=== PATIENT | male | born 1965 | race Caucasian/White ===

== ENCOUNTER 2021-04-16 18:42 | Outpatient (REF) | payer MEDICARE, MEDICAID, SELFPAY ==
[2021-04-16 19:41] LABS: Influenza A PCR NEGATIVE (Negative); Influenza B PCR NEGATIVE (Negative); Resp Syncy Virus RNA Qual PCR NEGATIVE (Negative); SARS COV2 PCR INHOUSE POSITIVE (Negative)
== END 2021-04-16 18:43 | disposition home or self-care (01) ==
LOC: HO.LNP 18:42
PROVIDERS: Visit Provider Internal Medicine
DX: R43.9 Unspecified disturbances of smell and taste (principal); Z20.822 Contact with and (suspected) exposure to COVID-19
CPT/HCPCS: 0241U

== ENCOUNTER 2021-12-07 08:57 | Outpatient (REF) | payer MEDICARE, SELFPAY ==
[2021-12-07 09:16] LABS: MANUAL DIFF FLAG NO
[2021-12-07 10:43] LABS: Basophils Percent Auto 0.5 % (0-2); Eosinophils Absolute Auto 0.2 X10*3/uL (0.0-0.4); Eosinophils Percent Auto 2.8 % (0-4); Hematocrit 44.7 % (42.0-52.0); Imm Gran Abs Auto 0.02 X10*3/uL (0.00-0.03); Imm Gran Pct Auto 0.3 % (0.0-0.4); Lymphocytes Absolute Auto 2.9 X10*3/uL (1.2-4.9); Lymphocytes Percent Auto 43.7 % (20-40); Mean Corpuscular HGB Conc 33.6 g/dl (31.0-36.0); Mean Corpuscular Hemoglobin 30.4 pg (27.0-33.0); Mean Corpuscular Volume 90.5 fL (80.0-98.0); Mean Platelet Volume 11.2 fL (9.4-12.4); Monocytes Absolute Auto 0.6 X10*3/uL (0.1-1.2); Monocytes Percent Auto 9.2 % (2-11); Neutrophils Absolute Auto 2.9 x10*3/uL (2.0-8.3); Neutrophils Percent Auto 43.5 % (45-73); Platelet Count 284 X10*3/uL (160-400); Red Blood Count 4.94 X10*6/uL (4.60-5.80); Red Cell Distribution Width 12.7 % (11.0-16.0); White Blood Count 6.5 X10*3/uL (4.8-10.8)
[2021-12-07 11:11] LABS: Alanine Aminotransferase 13 U/L (0-40); Albumin Level 4.1 g/dL (3.5-5.0); Alkaline Phosphatase 72 U/L (39-117); Anion Gap 14 (12-20); Aspartate Amino Transferase 19 U/L (5-37); Bilirubin Total 0.6 mg/dL (0.0-1.0); Blood Urea Nitrogen 16 mg/dL (9-16); Calcium 9.2 mg/dL (8.4-10.2); Carbon Dioxide 27 mmol/L (22-29); Chloride 107 mmol/L (96-108); Cholesterol 213 mg/dL; Estimated Glomerular Filt Rate > 60; Glucose Fasting 80 mg/dL (60-99); HDL Cholesterol 46 mg/dL; LDL Cholesterol Calculated 149 mg/dl; Potassium 5.3 mmol/L (3.3-5.1); Sodium 143 mmol/L (135-145); Total Protein 7.6 g/dL (6.5-8.0); Triglycerides 91 mg/dL
== END 2021-12-07 08:58 | disposition home or self-care (01) ==
LOC: HO.LAB 08:57
PROVIDERS: PCP Internal Medicine; Visit Provider Internal Medicine
DX: Z00.00 Encounter for general adult medical examination without abnormal findings (principal); R56.9 Unspecified convulsions; E78.5 Hyperlipidemia, unspecified
CPT/HCPCS: 36415; 80053; 80061; 85025

== ENCOUNTER 2022-01-16 15:37 | Emergency (ER) | payer MEDICARE, SELFPAY | END 2022-01-16 17:17 | disposition left against medical advice (07) | PROVIDERS: Emergency Provider Emergency Medicine; PCP Internal Medicine | DX: R10.9 Unspecified abdominal pain (principal) ==

== ENCOUNTER 2022-01-20 12:35 | Outpatient (REF) | payer MEDICARE, SELFPAY ==
--- NOTE | ~2022-01-20 | US_ITS ---
EXAMINATION: US SOFT TISSUE NECK CLINICAL INFORMATION: Localized swelling, mass and lump in neck. COMPARISON: None TECHNIQUE: Ultrasound of the neck soft tissues is performed with high- frequency esteves-scale imaging and color Doppler. There is limitation to the study secondary to difficulty with patient positioning and the patient's condition. FINDINGS: Scanning was performed in the region of the palpable lump. In this region is a subcutaneous focus with smooth margins and horizontal orientation measuring approximately 5.0 x 0.7 x 4.5 cm. The surrounding soft tissues are unremarkable. Color Doppler showed no abnormal vascular flow. US/US soft tiss head and/or neck IMPRESSION: The measured hypoechoic focus is nonspecific. The appearance is benign. It is unclear if this represents normal muscle however, a lipoma and some images cannot be excluded. * If these findings persist or enlarge, short-term repeat targeted soft tissue ultrasound can be performed as clinically indicated to assess for change.
== END 2022-01-20 12:36 | disposition home or self-care (01) ==
LOC: HO.US 12:35
PROVIDERS: PCP Internal Medicine; Visit Provider Internal Medicine
DX: R22.1 Localized swelling, mass and lump, neck (principal)
CPT/HCPCS: 76536

== ENCOUNTER 2023-11-25 09:56 | Outpatient (REF) | payer MEDICARE, SELFPAY ==
[2023-11-25 11:58] LABS: Appearance Urine Cloudy; Color Urine Yellow; Glucose Urine UA Negative (Negative); Leukocyte Esterase Urine Moderate (2+) (Negative); Nitrite Urine Negative (Negative); Specific Gravity - Urine 1.025 (1.005-1.025); UMIC TRIGGER UACC YES; Urine Blood Negative (Negative); Urine Ketones Trace mg/dL (Negative); Urine Protein Negative (Neg-Trace)
[2023-11-25 12:11] LABS: Bacteria Urine 4+ (None Seen); Hyaline Casts Urine 0-2 /LPF (0-2); RBC Urine 0-2 /HPF (0-2); Squamous Epithelial Cell Urine 0-2 /HPF (0-2); UACC Culture Trigger YES
== END 2023-11-25 09:57 | disposition home or self-care (01) ==
LOC: HO.LAB 09:56
PROVIDERS: PCP Internal Medicine; Visit Provider Internal Medicine
DX: R30.0 Dysuria (principal)
CPT/HCPCS: 81001; 87086

== ENCOUNTER 2024-09-26 09:26 | Outpatient (AMB) | payer MEDICARE, SELFPAY ==
--- NOTE | 2024-09-26 09:46 | A.OFFPC_ITS ---
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 President Required: No Accompanied by: Sister Allergies Penicillins [PENICILLINS] Allergy (Intermediate, Verified 09/26/24 10:05) Rash Medication List - Last Reconciled 09/26/24 by Nette Smith MD [adult diapers briefs As directed] [adult diapers pull-ups As directed] [cleansing wipes As directed] disposable gloves As directed divalproex 250 mg PO BID 90 days fluoxetine 20 mg PO DAILY food supplemt, lactose-reduced (Ensure oral liquid) 1 ea PO DAILY 90 days [lift chair As directed] pantoprazole 40 mg PO DAILY 90 days ropinirole 0.5 mg PO BEDTIME underpads (Bed Underpads) As directed underpads (Bed Underpads) Use 2 to 4 bed underpads daily as needed Tobacco use date assessed: 09/26/24 Dental Screening Dental Screen Date: 09/26/24 Did you have a dental visit in the last 12 months?: No Did you have a dental problem in the last 6 months where you did not have access to dental care?: No Was dental information given to patient?: No HPI HPI Comments History of Present Illness Details The patient is a 59-year-old male with cerebral palsy presenting chiefly for evaluation and management of his seizure disorder, previously controlled with Divalproex, under guidance from neurology, whom he initially started consulting after the passing of his mother. Notably, the patient has a documented medical history of recurrent urinary tract infections which required clinical attention and reported issues with insomnia unresponsive to prior treatment with up to 20 mg of melatonin. He also experiences chronic depression and anxiety, treated with 20 mg of Fluoxetine without psychiatric oversight, and he suffers from Restless Leg Syndrome, managed with 0.5 mg of Ropinirole at night. Acid reflux symptoms remain active, necessitating continued usage of Pantoprazole, of which he requires a current refill. The patient has undergone a Cologuard screening in 2021 which returned to normal. He has no history of smoking or alcohol use and underwent past tooth extraction procedures. FIT done 2023. [facility] Medical History Seizures Bedridden GERD (gastroesophageal reflux disease) Cerebral palsy Surgical History H/O tooth extraction Family History (Updated 09/26/24 @ 10:12 by Nette Smith MD) Father Cancer Mother Hypertension Gout Paternal Grandmother Cancer Paternal Grandfather Cancer Social History Housing: Apartment Alcohol intake: never Patient Tobacco Use Status: Never used Tobacco e-Cigarette/Vaping Use: Never Used Second Hand Smoke Exposure: No service: No Current occupational status: disabled Cognitive needs: Yes Hearing needs: No Vision needs: No Questionnaire PHQ-9 Over the last 2 weeks, how often have you been bothered by any of the following problems? 1. Little interest or pleasure in doing things: not at all 2. Feeling down, depressed, or hopeless: not at all 3. Trouble falling or staying asleep, or sleeping too much: more than half the days 4. Feeling tired or having little energy: not at all 5. Poor appetite or overeating: not at all 6. Feeling bad about yourself - or that you are a failure or have let yourself or your family down: not at all 7. Trouble concentrating on things, such as reading the newspaper or watching television: not at all 8. Moving or speaking so slowly that other people could have noticed. Or the opposite - being so fidgety or restless that you have been moving around a lot more than usual: not at all 9. Thoughts that you would be better off or of hurting yourself in some way: not at all Total score: 2 Depression Screening Interpretation: Positive Depression Screening Follow-up: Existing condition, In treatment and Follow-up Visit Requested Depression Screening Done: Yes 65257 - PHQ-9 Billing: Yes Source: Developed by Drs. Joshua Jimenez, Nora Barlow, Ezra So and colleagues, with an educational юлия from [employer]. Thrive Questionnaire Date Thrive assessed: 09/19/24 I am a: Parent/Caregiver What is your living situation today?: I have a steady place to live Within the past 12 months, did the food you bought not last and you didn't have the money to get more?: Sometimes True Within the past 12 months, did you worry whether your food would run out before you got money to buy more?: Sometimes True Do you have trouble paying for medicines?: No Do you have trouble getting transportation to medical appointments?: No Do you have trouble paying your heating and electricity bill?: Yes Do you have trouble taking care of your child, family member or friend?: No Do you have trouble with day-to-day activities such as bathing, preparing meals, shopping, managing finances, etc.?: Yes Are you currently unemployed and looking for a job?: No Are you interested in more education?: No Please select the resources that you would like help with: Utilities Currently or been in a relationship where the following occur: No concerns reported and I choose not to answer THRIVE Score: 3 AUDIT C Alcohol Use Questionnaire (AUDIT-C) 1. How often do you have a drink containing alcohol?: Never Total Score: 0 Score Reviewed/Action Taken: No TEO-7 AMB Questionnaire TEO-7 Date TEO - 7 assessed: 09/26/24 Feeling nervous, anxious, or on edge: 0 = Not at all Not being able to stop or control worryin = Not at all Worrying too much about different things: 0 = Not at all Trouble relaxin = Not at all Being so restless that it is hard to sit still: 0 = Not at all Becoming easily annoyed or irritable: 0 = Not at all Feeling afraid as if something awful might happen: 0 = Not at all Total TEO-7 score (0-4 normal; 5-9 mild; 10-14 moderate; 15-21 severe): 0 Source: Developed by Drs. Joshua Jimenez, Nora Barlow, Ezra So and colleagues, with an educational юлия from [employer]. TEO-7 Assessment Billing TEO-7 Assessment Tool: TEO-7 Assessment 95777 Review of Systems Const All systems reviewed & are unremarkable except as noted in HPI and below Card Denies chest pain at rest, Denies chest pain with activity, Denies edema, Denies irregular heart rhythm, Denies claudication, Denies dyspnea, Denies dyspnea on exertion, Denies orthopnea, Denies paroxysmal nocturnal dyspnea and Denies slow heart rate Resp Denies cough, Denies dyspnea and Denies dyspnea on exertion GI Denies abdominal pain, Denies change in bowel habits, Denies excessive flatus, Denies nausea and Denies vomiting Physical exam (Primary Care) Vital Signs: Last Vital Signs BP 114/70 09/26/24 09:48 Tobacco/Smoking Status: Tobacco use Status Tobacco use date assessed 09/26/24 09/26/24 09:57 Patient Tobacco Use Status Never used Tobacco 09/26/24 09:50 e-Cigarette/Vaping Use Never Used 09/26/24 09:50 PHQ-9: PHQ-9 Score PHQ-9: Total score 2 09/26/24 10:07 Depression Screening Interpretation: Positive Depression Screening Follow-up: Existing condition, In treatment and Follow-up Visit Requested Thrive Assessment: Date of Thrive Assessment Date Thrive assessed 09/19/24 09/26/24 09:50 Currently or been in a relationship where the following occur: No concerns reported and I choose not to answer Const Limitations: wheelchair Resp Effort & Inspection: normal respiratory effort Auscultation: clear to auscultation bilaterally Cardio Jugular venous distension: no JVD Rate: regular rate Rhythm: regular rhythm Heart sounds: S1 normal heart sound present and S2 normal heart sound present Neuro Other: nonverbal, moving constantly Extrem General: Yes full ROM Coding Level of Care Code Est Pt Level 4 (74248) Complex EM visit Add On G2211 Diagnoses Seizures R56.9 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 GERD (gastroesophageal reflux disease) K21.9 Depression with anxiety F41.8 Additional Codes TEO-7 Assessment Billing - TEO-7 Assessment Tool: TEO-7 Assessment 52750 ([id number]) PHQ-9 - 59369 - PHQ-9 Billing: Yes ([id number]) Time Spent (min) 23 Assessment & Plan Assessment & Plan (1) Seizures: Code(s): R56.9 - Unspecified convulsions Category: Medical (2) Cerebral palsy: Code(s): G80.9 - Cerebral palsy, unspecified Category: Medical Qualifiers: Cerebral palsy type: spastic diplegic Qualified Code(s): G80.1 - Spastic diplegic cerebral palsy (3) GERD (gastroesophageal reflux disease): Code(s): K21.9 - Gastro-esophageal reflux disease without esophagitis Category: Medical (4) Depression with anxiety: Code(s): F41.8 - Other specified anxiety disorders Category: Medical Plan I will arrange a neurology consult regarding the seizure disorder, specifically exploring the necessity of an EEG assessment. Current urinary management will continue with diaper usage. I will evaluate recurrent UTIs via laboratory tests as needed. A Pantoprazole refill will be processed for acid reflux symptoms. Maintaining current therapy with Fluoxetine for managing depression and anxiety, considering potential future psychiatric referrals. Insomnia intervention will progress through a potential regimen of magnesium supplementation. Existing Restless Leg Syndrome management with Ropinirole remains appropriate. Coordination for fasting labs concerning cholesterol and other screenings is planned. Cologuard previous results remain normal; retesting will continue on a scheduled basis. Patient was informed and verbally consented to the use of an ambient scribe for clinic note documentation during this visit. During our discussion, I explained the seizure disorder management, including why an EEG is advisable, and reinforced ongoing medication adherence for Restless Leg Syndrome, depression, and anxiety. We deliberated the Pantoprazole refill for acid reflux and discussed magnesium supplementation for insomnia. Opportunities for engaging neurology for additional insight on the seizures were noted. We also reviewed the schedule for necessary laboratory tests, highlighted the importance of retesting Cologuard for colorectal health, and confirmed regular monitoring of potassium levels. Orders: Referrals Neurology Referral R56.9 - Unspecified convulsions Medications: New magnesium oxide 400 mg PO BEDTIME 90 tabs 1RF 90 days Refilled pantoprazole 40 mg PO DAILY 90 tabs 3RF 90 days Patient Instructions: - Continue taking all medications as prescribed. - Use diapers as needed for urinary and fecal incontinence. - Monitor for any signs of urinary tract infection and seek care if symptoms worsen. - Refill Pantoprazole to manage acid reflux. - Follow existing medication regimen for depression and anxiety. - Try magnesium supplements for insomnia. - Arrange for an EEG with neurology as discussed. - Complete fasting laboratory tests as scheduled. - Schedule Cologuard retesting as needed. - Keep follow-up appointments with clinicians as advised.
[2024-09-26 09:48] VITALS: BP 114/70
== END 2024-09-26 10:18 | disposition home or self-care (01) ==
LOC: HO.HMCH 09:26
PROVIDERS: PCP Internal Medicine; Visit Provider Internal Medicine
DX: R56.9 Unspecified convulsions (principal); G80.1 Spastic diplegic cerebral palsy; K21.9 Gastro-esophageal reflux disease without esophagitis; F41.8 Other specified anxiety disorders

== ENCOUNTER → 2024-09-26 09:26 | Outpatient (BNVA) | payer MEDICARE, SELFPAY | PROVIDERS: PCP Internal Medicine; Visit Provider Internal Medicine | DX: G80.1 Spastic diplegic cerebral palsy (principal); G40.909 Epilepsy, unspecified, not intractable, without status epilepticus; G25.81 Restless legs syndrome; K21.9 Gastro-esophageal reflux disease without esophagitis; F41.8 Other specified anxiety disorders; Z87.440 Personal history of urinary (tract) infections | CPT/HCPCS: 96127; 99212 ==

== ENCOUNTER 2025-02-13 10:03 | Outpatient (AMB) | payer MEDICARE, SELFPAY ==
--- NOTE | 2025-02-13 10:09 | A.OFFVIS_ITS ---
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: No Accompanied by: sister and ELECTROENCEPHALOGRAPH TECHNOLOGIST Allergies Penicillins (PENICILLINS) Allergy (Intermediate, Verified 02/13/25 10:11) Rash Medication List - Last Reconciled 02/13/25 by Tayla Perry MD acetaminophen (Tylenol Extra Strength) 500 mg PO Q6H PRN [adult diapers briefs As directed] [adult diapers pull-ups As directed] baclofen 10 mg PO BEDTIME [cleansing wipes As directed] cranberry 500 mg PO BID disposable gloves As directed divalproex 500 mg PO BID 90 days fluoxetine 20 mg PO DAILY food supplemt, lactose-reduced (Ensure oral liquid) 1 ea PO DAILY 90 days [lift chair As directed] magnesium oxide 400 mg PO BEDTIME 90 days pantoprazole 40 mg PO DAILY 90 days ropinirole 0.5 mg PO BEDTIME underpads (Bed Underpads) As directed underpads (Bed Underpads) Use 2 to 4 bed underpads daily as needed HPI Comments Details: 59-year-old male with cerebral palsy and seizures, restless legs comes for further management.He is accompanied by his sister and ELECTROENCEPHALOGRAPH TECHNOLOGIST. He was seeing a neurologist until 2022 -his mother was his photography intern until 2022 .she - sister is not aware of his history but she says he never had a seizure that she knows of. He lives with his sister and he has 59 hrs of ELECTROENCEPHALOGRAPH TECHNOLOGIST help. [facility] He needs help with all his ADLs. He does not sleep - he watches TV all night , takes naps during daytime . He was tried on melatonin 20mg He also experiences chronic depression and anxiety, treated with 20 mg of Fluoxetine without psychiatric oversight, but sister denies depression Restless Leg Syndrome, managed with 0.5 mg of Ropinirole at night- he c/o leg cramps which is poorly controlled sister does not want him on medications that he does not need. 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 Cerebral palsy Seizures Bedridden GERD (gastroesophageal reflux disease) Cerebral palsy Surgical History H/O tooth extraction Family History Father Cancer Mother Hypertension Gout Paternal Grandmother Cancer Paternal Grandfather Cancer Social History Housing: Apartment Alcohol intake: never Patient Tobacco Use Status: Never used Tobacco e-Cigarette/Vaping Use: Never Used Second Hand Smoke Exposure: No service: No Current occupational status: disabled Cognitive needs: Yes Hearing needs: No Vision needs: No Physical Exam Vital Signs: Last Vital Signs Pulse 70 02/13/25 10:17 BP 120/82 02/13/25 10:17 Pulse Ox 96 02/13/25 10:17 Oxygen Delivery Method Room Air 02/13/25 10:17 Const Other: gen choeroathetoid movements General: cooperative Orientation/consciousness: oriented to person Neuro Other: generalized choeroathetoid movements Communicates in kiswahili Spastic quadriparesis In wheel chair Unable to do DTR Face symmetric Head and neck movements Tongue movements General: oriented to person Assessment & Plan Assessment & Plan (1) Cerebral palsy: Code(s): G80.9 - Cerebral palsy, unspecified Category: Medical (2) 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
[2025-02-13 10:17] VITALS: BP 120/82; PULSE 70; O2SAT 96
== END 2025-02-13 10:59 | disposition home or self-care (01) ==
LOC: HO.HSMS 10:04
PROVIDERS: PCP Internal Medicine; Visit Provider Psychiatry & Neurology Neurology
DX: G80.9 Cerebral palsy, unspecified (principal); G80.0 Spastic quadriplegic cerebral palsy; G25.81 Restless legs syndrome; G47.00 Insomnia, unspecified
CPT/HCPCS: 99204

== ENCOUNTER → 2025-02-13 10:03 | Outpatient (BNVA) | payer OTHER, SELFPAY | PROVIDERS: PCP Internal Medicine; Visit Provider Psychiatry & Neurology Neurology | DX: G80.0 Spastic quadriplegic cerebral palsy (principal); G25.81 Restless legs syndrome; G47.00 Insomnia, unspecified | CPT/HCPCS: 99202 ==